=== PATIENT | female | born 1965 | race Caucasian/White ===

== ENCOUNTER 2018-11-24 06:08 | Inpatient (IN) | payer BC ==
[2018-11-21 14:55] LABS: BASOPHILS # (AUTO) 0.02 x10^3/uL (0-0.1); BASOPHILS % (AUTO) 0 % (0-1); EOSINOPHILS # (AUTO) 0.06 x10^3/uL (0-0.4); EOSINOPHILS % (AUTO) 1 % (1-7); LYMPHOCYTES # (AUTO) 1.32 x10^3/uL (1-3.4); LYMPHOCYTES % (AUTO) 22 % (22-44); MD NO; MEAN CORPUSCULAR HGB CONC 31.2 g/dL (32.4-35.8); MONOCYTES # (AUTO) 0.52 x10^3/uL (0.2-0.8); MONOCYTES % (AUTO) 9 % (2-9); NEUTROPHILS # (AUTO) 4.18 x10^3/uL (1.8-6.8); NEUTROPHILS % (AUTO) 69 % (42-75); PLATELET COUNT 288 x10^3/uL (130-400); RED CELL DISTRIBUTION WIDTH 15.5 % (9.6-15.2)
[2018-11-21 15:02] LABS: INTERNATIONAL NORMALIZED RATIO 0.95 (0.93-1.1)
[2018-11-21 15:03] LABS: ALANINE AMINOTRANSFERASE 42 U/L (12-78); ALBUMIN 3.5 g/dL (3.4-5.0); ANION GAP 6 mmol/L (5-15); CALCIUM 8.4 mg/dL (8.5-10.1); CHLORIDE 108 mmol/L (98-107); CREATININE 0.62 mg/dL (0.55-1.02)
[2018-11-21 15:06] LABS: ALKALINE PHOSPHATASE 71 U/L (45-117); BILIRUBIN,TOTAL 0.3 mg/dL (0.2-1.0); TOTAL PROTEIN 7.1 g/dL (6.4-8.2)
[2018-11-21 15:54] LABS: HEMOGLOBIN A1C 5.2 % (4.2-6.3)
[~2018-11-24] VITALS: Ht 162.6 cm; Wt 83.0 kg
[~2018-11-24 06:08] MED LIST: CELE200C PO; LIDO700A42 TD; MULT-658 PO
[2018-11-24] MEDS ORDERED: SODIUM CHLORIDE 0.9% 50 ML ONE (06:15)
[2018-11-24] MEDS ORDERED: VANCOMYCIN 1,000 MG ONE (06:15)
[2018-11-24] MEDS ORDERED: EPINEPHRINE 1 MG/ML, 1ML ONE (06:15)
[2018-11-24] MEDS ORDERED: TRANEXAMIC ACID 100 MG/ML, 10ML ONE ×2 (06:15→06:30)
[2018-11-24] MEDS ORDERED: KETOROLAC 60 MG/2 ML ONE (06:15)
[2018-11-24] MEDS ORDERED: ROPIvacaine/PF 0.5%, 30 ML ONE (06:15)
[2018-11-24] MEDS ORDERED: NS + 20MEQ KCL 1,000 ML IV SCH (06:44)
[2018-11-24] MEDS ORDERED: ONDANSETRON 2MG/ML, 2ML IV PRN ×2 (07:00→10:00)
[2018-11-24] MEDS ORDERED: MAGNESIUM HYDROXIDE 8%, 30ML UDC PO PRN (07:00)
[2018-11-24] MEDS ORDERED: SENNA/DOCUSATE TABLET PO PRN (07:00)
[2018-11-24] MEDS ORDERED: ONDANSETRON 4 MG TABLET PO PRN (07:00)
[2018-11-24] MEDS ORDERED: BISACODYL 10 MG SUPP PR PRN (07:00)
[2018-11-24] MEDS ORDERED: ZOLPIDEM 5MG TABLET PO PRN (07:00)
[2018-11-24] MEDS ORDERED: SCOPOLAMINE PATCH, 1.5MG PATCH.TD72 TD ONE (07:00)
[2018-11-24] MEDS ORDERED: CEFAZOLIN PMX 2GM/50ML 50 ML IVPB SCH (07:00)
[2018-11-24] MEDS ORDERED: ACETAMINOPHEN 650 MG/20.3 ML UDC PO PRN (07:00)
[2018-11-24] MEDS ORDERED: DIPHENHYDRAMINE 25 MG CAPSULE PO PRN (07:00)
[2018-11-24] MEDS ORDERED: HYDROcodone/APAP 5/325 TABLET PO PRN (07:00)
[2018-11-24] MEDS ORDERED: LACTATED RINGERS 1,000 ML IV SCH (07:10)
[2018-11-24] MEDS ORDERED: ACETAMINOPHEN 500 MG TABLET ONE (07:43)
[2018-11-24] MEDS ORDERED: GABAPENTIN 300 MG CAPSULE ONE (07:44)
[2018-11-24] MEDS ORDERED: ACETAMINOPHEN 500 MG TABLET PO ONE (08:00)
[2018-11-24] MEDS ORDERED: GABAPENTIN 300 MG CAPSULE PO ONE (08:00)
[2018-11-24] MEDS ORDERED: MIDAZOLAM 1 MG/ML, 2ML ONE (08:50)
[2018-11-24] MEDS ORDERED: FENTANYL PF 250 MCG/5ML ONE (08:50)
[2018-11-24] MEDS: KETOROLAC 30 MG/1 ML IM SCH ×3 (09:00→21:17)
[2018-11-24] MEDS: DOCUSATE 100 MG CAPSULE PO SCH ×2 (09:00→21:15)
[2018-11-24] MEDS ORDERED: LIDOCAINE-MPF 2% ,5ML ONE (09:10)
[2018-11-24] MEDS ORDERED: ONDANSETRON ODT 8 MG PO PRN (10:00)
[2018-11-24] MEDS ORDERED: OXYcodone 5 MG/5 ML ORAL.SOL UDC PO PRN (10:00)
[2018-11-24] MEDS ORDERED: PROMETHAZINE 25 MG/ML, 1ML IV PRN (10:00)
[2018-11-24] MEDS ORDERED: LORazepam 2 MG/ML, 1ML IVPush PRN (10:00)
[2018-11-24] MEDS ORDERED: MEPERIDINE/PF 25MG/0.5ML IVPush PRN (10:00)
[2018-11-24] MEDS ORDERED: PROMETHAZINE 25 MG SUPP PR PRN (10:00)
[2018-11-24] MEDS ORDERED: HYDROmorphone 2 MG/ML, 1ML IVPush PRN (10:00)
[2018-11-24] MEDS ORDERED: DEXAMETHASONE 4 MG/ML, 1ML ONE (10:16)
[2018-11-24] MEDS ORDERED: FENTANYL PF 100 MCG/2ML ONE ×2 (10:16→10:41)
[2018-11-24] MEDS ORDERED: CEFAZOLIN 1,000 MG ONE (10:16)
[2018-11-24] MEDS ORDERED: ONDANSETRON 2MG/ML, 2ML ONE (10:16)
[2018-11-24] MEDS ORDERED: PROPOFOL 10 MG/ML, 20ML ONE (10:16)
[2018-11-24] MEDS ORDERED: OXYcodone 5 MG/5 ML ORAL.SOL UDC ONE (10:41)
[2018-11-24] MEDS: FENTANYL PF 100 MCG/2ML IV PRN ×2 (10:45→10:53)
[2018-11-24] MEDS ORDERED: MEPERIDINE/PF 25MG/ML,1ML ONE (11:37)
[2018-11-24 13:36] VITALS: BP 89/53
[2018-11-24] MEDS ORDERED: LIDODERM 5% PATCH TD SCH (14:30)
[2018-11-24] MEDS: CEFAZOLIN PMX 2GM/50ML 50 ML IVPB SCH (16:42)
[2018-11-24] MEDS: OXYcodone IR 5MG TABLET PO PRN (16:42)
[2018-11-24 16:43] VITALS: BP 95/55
[2018-11-24] MEDS: ASPIRIN 81 MG TABLET EC PO SCH (17:52)
[2018-11-24 19:17] VITALS: BP 84/50
[2018-11-24 20:23] VITALS: BP 85/50
[2018-11-24 23:54] VITALS: BP 100/58
[2018-11-25] MEDS: OXYcodone IR 5MG TABLET PO PRN ×3 (00:01→08:35)
[2018-11-25] MEDS: CEFAZOLIN PMX 2GM/50ML 50 ML IVPB SCH (01:10)
[2018-11-25] MEDS: NS + 20MEQ KCL 1,000 ML IV SCH ×2 (01:10→10:48)
[2018-11-25] MEDS: KETOROLAC 30 MG/1 ML IM SCH (03:33)
[2018-11-25 03:43] VITALS: BP 81/54
[2018-11-25 04:53] VITALS: BP 84/53
[2018-11-25] MEDS ORDERED: DEXAMETHASONE 4 MG/ML, 1ML IVPush SCH (06:00)
[2018-11-25] MEDS: ASPIRIN 81 MG TABLET EC PO SCH (06:36)
[2018-11-25 07:22] VITALS: BP 95/62
[2018-11-25] MEDS: DOCUSATE 100 MG CAPSULE PO SCH (08:34)
[2018-11-25] MEDS ORDERED: MULTIVITAMIN 1 TABLET PO SCH (09:00)
[2018-11-25] MEDS ORDERED: MUPIROCIN OINT 2%, 22GM TP SCH ×2 (10:00→21:00)
[2018-11-25] MEDS ORDERED: FERROUS SULFATE 325 MG TABLET PO SCH (12:00)
[2018-11-25 14:03] VITALS: BP 106/65
[2018-11-25] MEDS ORDERED: OXYC5TAB3 PO (14:44)
[2018-11-25] MEDS ORDERED: TRAM50TA2 PO (14:44)
== END 2018-11-25 15:20 | disposition home or self-care (01) | DRG 470 ==
LOC: ORIP 06:08 → 4NOR 12:22 → DCLOUNGE 11-25 15:08
PROVIDERS: ADMIT Orthopaedic Surgery; ATTEND Orthopaedic Surgery
PROC: 0SR906A Replacement of Right Hip Joint with Oxidized Zirconium on Polyethylene Synthetic Substitute, Uncemented, Open Approach (ICD-10-PCS; principal; 2018-11-24 08:45)
DX: M16.11 Unilateral primary osteoarthritis, right hip (principal); J45.909 Unspecified asthma, uncomplicated; Z88.8 Allergy status to other drugs, medicaments and biological substances
CPT/HCPCS: 36415; 72170; 73501; 76000; J3490; 80053; 81025; 83036; 85014; 85018; 85025; 85610; 85730; 87081; 93005; C1713; G0378; J0171; J0690; J1100; J1885; J2175; J2250; J2405; J2704; J2795; J3010; J3370; J3480; Q0162; C1776

== ENCOUNTER 2020-09-05 03:25 | Inpatient (IN) | payer BC ==
[~2020-09-05] VITALS: Ht 162.6 cm; Wt 85.4 kg
[~2020-09-05 03:25] MED LIST changes: +OXYC5TAB98 PO; +TRAM50TA2 PO
[2020-09-05] MEDS ORDERED: SODIUM CHLORIDE FLUSH 10ML SYR IVF ONE (03:30)
[2020-09-05] MEDS ORDERED: MORPHINE SULFATE 4 MG/ML, 1ML IVPush PRN (03:30)
[2020-09-05] MEDS ORDERED: ONDANSETRON 2MG/ML, 2ML IVPush ONE (03:30)
--- NOTE | 2020-09-05 03:40 | NUR ---
PT BIB EMS TRANSFER FROM [facility], AND PT A&OX4, MILD C/O PAIN TO LOWER BACK. PAPERWORK WITH PT, AND GIVEN TO MD WHEN ARRIVED TO ROOM FOR EVAL. PT WITH IV TO LEFT AC, INTACT, AND FLUSHES EASILY, NO SWELLING, NO REDNESS AND INTACT.
[2020-09-05 03:49] LABS: BASOPHILS % (AUTO) 1 % (0-1); EOSINOPHILS % (AUTO) 2 % (1-7); LYMPHOCYTES % (AUTO) 10 % (22-44); MD NO; MEAN CORPUSCULAR HEMOGLOBIN 24.7 pg (27.0-34.8); MEAN CORPUSCULAR HGB CONC 31.6 g/dL (32.4-35.8); MONOCYTES % (AUTO) 7 % (2-9); NEUTROPHILS % (AUTO) 81 % (42-75); PLATELET COUNT 217 x10^3/uL (130-400); RED CELL DISTRIBUTION WIDTH 16.1 % (9.6-15.2)
[2020-09-05 03:55] LABS: ALANINE AMINOTRANSFERASE 560 U/L (12-78); ALBUMIN 3.7 g/dL (3.4-5.0); ANION GAP 6 mmol/L (5-15); CALCIUM 8.6 mg/dL (8.5-10.1); CHLORIDE 108 mmol/L (98-107)
[2020-09-05 03:57] LABS: ALKALINE PHOSPHATASE 778 U/L (45-117); BILIRUBIN,TOTAL 2.1 mg/dL (0.2-1.0); TOTAL PROTEIN 7.2 g/dL (6.4-8.2)
[2020-09-05] MEDS ORDERED: ONDANSETRON 2MG/ML, 2ML ONE (04:18)
[2020-09-05] MEDS ORDERED: MORPHINE SULFATE 4 MG/ML, 1ML ONE (04:18)
--- NOTE | 2020-09-05 04:25 | NUR ---
PT RESTING COMFORTABLY, BUT STATES SHE IS HAVING PAIN AND NAUSEA. PT MEDICATED PER EMAR. AND IVF NS STARTED TO RUN OVER ONE HOUR. PTS IV INTACT, NO SWELLING NO REDNESS. PT TO BE ADMITTED.
[2020-09-05] MEDS ORDERED: HYDROmorphone 2 MG/ML, 1ML IVPush PRN (04:30)
[2020-09-05] MEDS ORDERED: PROMETHAZINE 25 MG/ML, 1ML IM PRN (04:30)
[2020-09-05] MEDS ORDERED: SODIUM CHLORIDE 0.9% 1,000ML IVBOLUS ONE (04:30)
--- NOTE | 2020-09-05 04:57 | NUR ---
REPORT CALLED TO FLOOR RN. PT AWAKE AND CALM, AND WATCHING TV WITH PTS AT BEDSIDE. PT AND UPDATED ON VISITING HOURS. WAITING ON CT TO BE READY TO TAKE PT THERE FIRST, AND THEN TO HER ROOM.
[2020-09-05 05:52] LABS: CHOL/HDL RATIO 2.1
[2020-09-05 05:54] VITALS: BP 118/71
[2020-09-05] MEDS: LACTATED RINGERS 1,000 ML IV SCH ×4 (06:25→23:44)
[2020-09-05 07:26] VITALS: BP 118/71
[2020-09-05] MEDS: FAMOTIDINE 20 MG/2 ML IVPush SCH ×2 (08:30→22:08)
[2020-09-05] MEDS ORDERED: HYDROcodone/APAP 5/325 TABLET PO PRN (09:00)
[2020-09-05 10:25] VITALS: BP 118/71
[2020-09-05 12:05] VITALS: BP 129/82
[2020-09-05] MEDS: morphine SULFATE 10 MG/ML, 1ML IVPush PRN ×2 (15:18→22:23)
[2020-09-05] MEDS: HEPARIN 5,000 UNITS/ML, 1ML SQ SCH (17:04)
[2020-09-05 18:55] VITALS: BP 133/74
[2020-09-05 22:04] VITALS: BP 128/78
[2020-09-05] MEDS: ONDANSETRON 2MG/ML, 2ML IVPush PRN (23:58)
[2020-09-06 00:19] VITALS: BP 108/67
[2020-09-06] MEDS: HEPARIN 5,000 UNITS/ML, 1ML SQ SCH ×3 (02:39→16:57)
[2020-09-06] MEDS: morphine SULFATE 10 MG/ML, 1ML IVPush PRN ×4 (04:38→18:45)
[2020-09-06 05:11] LABS: BASOPHILS % (AUTO) 1 % (0-1); EOSINOPHILS % (AUTO) 4 % (1-7); LYMPHOCYTES % (AUTO) 20 % (22-44); MEAN CORPUSCULAR HEMOGLOBIN 25.3 pg (27.0-34.8); MEAN CORPUSCULAR HGB CONC 32.3 g/dL (32.4-35.8); MEAN PLATELET VOLUME 9.3 fL (7.4-10.4); MONOCYTES % (AUTO) 6 % (2-9); NEUTROPHILS % (AUTO) 69 % (42-75); PLATELET COUNT 176 x10^3/uL (130-400); RED BLOOD COUNT 3.93 x10^6/uL (3.82-5.3); RED CELL DISTRIBUTION WIDTH 15.9 % (9.6-15.2)
[2020-09-06 05:12] LABS: MD NO
[2020-09-06 05:18] LABS: ALANINE AMINOTRANSFERASE 389 U/L (12-78); ANION GAP 9 mmol/L (5-15); CALCIUM 8.1 mg/dL (8.5-10.1); CHLORIDE 108 mmol/L (98-107); CREATININE 0.31 mg/dL (0.55-1.02)
[2020-09-06 05:20] LABS: ALKALINE PHOSPHATASE 645 U/L (45-117); BILIRUBIN,TOTAL 0.7 mg/dL (0.2-1.0); TOTAL PROTEIN 6.1 g/dL (6.4-8.2)
[2020-09-06] MEDS: LACTATED RINGERS 1,000 ML IV SCH ×2 (06:37→13:54)
[2020-09-06 06:41] VITALS: BP 116/66
[2020-09-06] MEDS: FAMOTIDINE 20 MG/2 ML IVPush SCH ×2 (08:24→20:36)
[2020-09-06] MEDS: ONDANSETRON 2MG/ML, 2ML IVPush PRN ×2 (08:26→18:44)
[2020-09-06 09:42] LABS: AMPHETAMINE SCREEN, URINE Negative (Negative); BARBITURATE SCREEN, URINE Negative (Negative); BENZODIAZEPINE SCREEN, URINE Negative (Negative); CANNABINOID SCREEN, URINE Negative (Negative); COCAINE SCREEN, URINE Negative (Negative); METHADONE SCREEN, URINE Negative (Negative); OPIATE SCREEN, URINE Positive (Negative)
[2020-09-06 14:00] VITALS: BP 127/81
[2020-09-06 20:52] VITALS: BP 129/82
[2020-09-06] MEDS: ACETAMINOPHEN 325 MG TABLET PO PRN (21:03)
[2020-09-07 00:59] VITALS: BP 128/79
[2020-09-07] MEDS: HEPARIN 5,000 UNITS/ML, 1ML SQ SCH ×3 (01:01→17:48)
[2020-09-07] MEDS ORDERED: LACTATED RINGERS 1,000 ML IV SCH (04:30)
[2020-09-07 04:52] LABS: BASOPHILS % (AUTO) 1 % (0-1); EOSINOPHILS % (AUTO) 5 % (1-7); LYMPHOCYTES % (AUTO) 28 % (22-44); MEAN CORPUSCULAR HEMOGLOBIN 25.1 pg (27.0-34.8); MEAN CORPUSCULAR HGB CONC 32.3 g/dL (32.4-35.8); MONOCYTES % (AUTO) 12 % (2-9); NEUTROPHILS % (AUTO) 56 % (42-75); PLATELET COUNT 177 x10^3/uL (130-400); RED BLOOD COUNT 3.73 x10^6/uL (3.82-5.3); RED CELL DISTRIBUTION WIDTH 16.2 % (9.6-15.2)
[2020-09-07 04:56] LABS: MD NO
[2020-09-07 04:58] LABS: ALANINE AMINOTRANSFERASE 287 U/L (12-78); ANION GAP 6 mmol/L (5-15); CALCIUM 8.5 mg/dL (8.5-10.1); CHLORIDE 108 mmol/L (98-107); CREATININE 0.41 mg/dL (0.55-1.02)
[2020-09-07 05:00] LABS: ALKALINE PHOSPHATASE 540 U/L (45-117); BILIRUBIN,TOTAL 0.5 mg/dL (0.2-1.0); TOTAL PROTEIN 5.9 g/dL (6.4-8.2)
[2020-09-07] MEDS: morphine SULFATE 10 MG/ML, 1ML IVPush PRN (06:38)
[2020-09-07 07:28] VITALS: BP 132/73
[2020-09-07] MEDS: ONDANSETRON 2MG/ML, 2ML IVPush PRN ×2 (08:57→17:48)
[2020-09-07] MEDS: FAMOTIDINE 20 MG/2 ML IVPush SCH ×2 (08:57→21:09)
[2020-09-07] MEDS ORDERED: POTASSIUM CHLORIDE 20 MEQ TAB.ER.PRT PO ONE (12:30)
[2020-09-07] MEDS: POTASSIUM CHLORIDE 20 MEQ in LACTATED RINGERS 1,000 ML IV SCH ×2 (14:04→23:01)
[2020-09-07 14:14] VITALS: BP 109/72
[2020-09-07 20:00] VITALS: BP 124/80
[2020-09-08 00:27] VITALS: BP 101/66
[2020-09-08] MEDS: HEPARIN 5,000 UNITS/ML, 1ML SQ SCH ×3 (01:56→17:12)
[2020-09-08] MEDS: morphine SULFATE 10 MG/ML, 1ML IVPush PRN (01:58)
[2020-09-08 06:39] LABS: BASOPHILS % (AUTO) 0 % (0-1); EOSINOPHILS % (AUTO) 2 % (1-7); LYMPHOCYTES % (AUTO) 18 % (22-44); MEAN CORPUSCULAR HEMOGLOBIN 25.3 pg (27.0-34.8); MEAN CORPUSCULAR HGB CONC 32.2 g/dL (32.4-35.8); MEAN PLATELET VOLUME 8.8 fL (7.4-10.4); MONOCYTES % (AUTO) 9 % (2-9); NEUTROPHILS % (AUTO) 70 % (42-75); PLATELET COUNT 162 x10^3/uL (130-400); RED BLOOD COUNT 3.76 x10^6/uL (3.82-5.3); RED CELL DISTRIBUTION WIDTH 16.2 % (9.6-15.2)
[2020-09-08 06:42] LABS: MD NO
[2020-09-08 07:01] VITALS: BP 152/70
[2020-09-08 07:01] LABS: ALANINE AMINOTRANSFERASE 210 U/L (12-78); ALBUMIN 2.9 g/dL (3.4-5.0); ANION GAP 4 mmol/L (5-15); CALCIUM 8.3 mg/dL (8.5-10.1); CHLORIDE 110 mmol/L (98-107)
[2020-09-08 07:04] LABS: ALKALINE PHOSPHATASE 462 U/L (45-117); BILIRUBIN,TOTAL 0.4 mg/dL (0.2-1.0); CREATININE 0.49 mg/dL (0.55-1.02)
[2020-09-08] MEDS: FAMOTIDINE 20 MG/2 ML IVPush SCH ×2 (08:27→20:38)
[2020-09-08 14:23] VITALS: BP 114/72
[2020-09-08] MEDS ORDERED: SIMETHICONE 80 MG CHEW TAB PO PRN (16:30)
[2020-09-08 18:32] VITALS: BP 112/71
[2020-09-09 00:32] VITALS: BP 127/79
[2020-09-09] MEDS: HEPARIN 5,000 UNITS/ML, 1ML SQ SCH ×2 (01:44→09:44)
[2020-09-09] MEDS: ACETAMINOPHEN 325 MG TABLET PO PRN (03:51)
[2020-09-09 05:12] LABS: BASOPHILS % (AUTO) 1 % (0-1); EOSINOPHILS % (AUTO) 1 % (1-7); LYMPHOCYTES % (AUTO) 11 % (22-44); MEAN CORPUSCULAR HEMOGLOBIN 25.5 pg (27.0-34.8); MEAN CORPUSCULAR HGB CONC 32.5 g/dL (32.4-35.8); MEAN PLATELET VOLUME 9.3 fL (7.4-10.4); MONOCYTES % (AUTO) 11 % (2-9); NEUTROPHILS % (AUTO) 77 % (42-75); PLATELET COUNT 188 x10^3/uL (130-400); RED BLOOD COUNT 3.95 x10^6/uL (3.82-5.3); RED CELL DISTRIBUTION WIDTH 15.8 % (9.6-15.2)
[2020-09-09 05:13] LABS: MD NO
[2020-09-09 05:26] LABS: CHLORIDE 110 mmol/L (98-107)
[2020-09-09 05:32] LABS: ALANINE AMINOTRANSFERASE 171 U/L (12-78); ALBUMIN 3.1 g/dL (3.4-5.0); ALKALINE PHOSPHATASE 420 U/L (45-117); ANION GAP 5 mmol/L (5-15); BILIRUBIN,TOTAL 0.4 mg/dL (0.2-1.0); CALCIUM 8.6 mg/dL (8.5-10.1); CREATININE 0.51 mg/dL (0.55-1.02); TOTAL PROTEIN 6.3 g/dL (6.4-8.2)
[2020-09-09 07:27] VITALS: BP 106/70
[2020-09-09] MEDS: FAMOTIDINE 20 MG/2 ML IVPush SCH (09:43)
[2020-09-09 12:19] LABS: ANA SCREEN NEGATIVE (Negative)
== END 2020-09-09 13:30 | disposition home or self-care (01) | DRG 440 ==
LOC: ED 03:55 → EDIP 04:35 → 4NE 05:37 → 3N 16:09 → DCLOUNGE 09-09 13:21
PROVIDERS: ADMIT Family Medicine; ATTEND Family Medicine
DX: K85.00 Idiopathic acute pancreatitis without necrosis or infection (principal); J45.909 Unspecified asthma, uncomplicated; Z20.822 Contact with and (suspected) exposure to COVID-19; Z83.3 Family history of diabetes mellitus; Z90.49 Acquired absence of other specified parts of digestive tract; Z98.84 Bariatric surgery status
CPT/HCPCS: 36415; 74181; 74240; 80053; 80061; 80074; 80299; 80307; 82105; 82306; 82390; 82607; 82728; 82977; 83516; 83540; 83550; 83690; 83735; 85025; 86038; 86704; 86706; 86708; 96374; 96375; 99285; G0378; J1644; J2405; J3480; J2270; J7030; J7120

== ENCOUNTER 2020-11-26 14:35 | Emergency (ER) | payer BC ==
[~2020-11-26] VITALS: Ht 162.6 cm; Wt 87.2 kg
[2020-11-26] MEDS ORDERED: ONDANSETRON 2MG/ML, 2ML IVPush ONE (15:30)
[2020-11-26] MEDS ORDERED: SODIUM CHLORIDE 0.9% 1,000ML IVBOLUS ONE (15:30)
[2020-11-26] MEDS ORDERED: MORPHINE SULFATE 4 MG/ML, 1ML IVPush PRN (15:30)
[2020-11-26] MEDS ORDERED: FAMOTIDINE 20 MG/2 ML IVPush ONE (15:30)
[2020-11-26] MEDS ORDERED: ONDANSETRON 2MG/ML, 2ML ONE (15:34)
[2020-11-26] MEDS ORDERED: MORPHINE SULFATE 4 MG/ML, 1ML ONE (15:35)
[2020-11-26] MEDS ORDERED: FAMOTIDINE 20 MG/2 ML ONE (15:35)
[2020-11-26 15:37] LABS: ALANINE AMINOTRANSFERASE 37 U/L (12-78); ALBUMIN 3.9 g/dL (3.4-5.0); ANION GAP 6 mmol/L (5-15); CALCIUM 8.8 mg/dL (8.5-10.1); CHLORIDE 104 mmol/L (98-107); CREATININE 0.72 mg/dL (0.55-1.02)
[2020-11-26 15:40] LABS: ALKALINE PHOSPHATASE 87 U/L (45-117); BILIRUBIN,TOTAL 0.3 mg/dL (0.2-1.0); TOTAL PROTEIN 7.8 g/dL (6.4-8.2)
[2020-11-26 16:09] LABS: BASOPHILS % (AUTO) 0 % (0-1); EOSINOPHILS % (AUTO) 1 % (1-7); LYMPHOCYTES % (AUTO) 24 % (22-44); MEAN CORPUSCULAR HEMOGLOBIN 24.4 pg (27.0-34.8); MEAN PLATELET VOLUME 9.3 fL (7.4-10.4); MONOCYTES % (AUTO) 11 % (2-9); NEUTROPHILS % (AUTO) 64 % (42-75); PLATELET COUNT 256 x10^3/uL (130-400); RED BLOOD COUNT 4.67 x10^6/uL (3.82-5.3); RED CELL DISTRIBUTION WIDTH 17.6 % (9.6-15.2)
[2020-11-26 17:22] VITALS: BP 110/72
--- NOTE | 2020-11-26 17:22 | NUR ---
TASK RN: PT AMBULATORY W/ A STEADY GAIT TO BR TO ATTEMPT UA.
--- NOTE | 2020-11-26 17:26 | NUR ---
TASK RN: CHRIS SENT.
[2020-11-26 17:38] LABS: MICROSCOPIC NOT IND
--- NOTE | 2020-11-26 18:18 | NUR ---
ALL TESTING REVIEWED, PLACED UP FOR RECHECK/ERP ASKED FOR POTASSIUM REPLETION ORDERS
--- NOTE | 2020-11-26 18:59 | NUR ---
RECEIVED REPORT FROM MICHELE KENNEDY
--- NOTE | 2020-11-26 19:00 | NUR ---
REPORT TO JAKE BAUTISTA
[2020-11-26] MEDS ORDERED: POTASSIUM CHLORIDE 20 MEQ TAB.ER.PRT ONE ×2 (19:23→19:26)
[2020-11-26] MEDS ORDERED: POTASSIUM CHLORIDE 20 MEQ TAB.ER.PRT PO ONE (19:30)
--- NOTE | 2020-11-26 19:35 | NUR ---
Patient given discharge instructions and they have confirmed that they understand the instructions. Patient ambulatory with steady gait.
== END 2020-11-26 19:40 | disposition home or self-care (01) ==
LOC: ED 15:04
DX: K29.00 Acute gastritis without bleeding (principal); E87.6 Hypokalemia
CPT/HCPCS: 36415; 80053; 81003; 83690; 85025; 96361; 96374; 96375; 99284; J2270; J2405; J7030